=== PATIENT | male | born 1960 | race Two or more races ===

== ENCOUNTER 2020-08-27 13:00 | Outpatient (CLI) | payer OTHER | END 2020-08-27 13:17 | disposition home or self-care (01) | LOC: SONOGRAMA 13:00 → MAMO-SONO 13:15 → SONOGRAMA 13:17 | PROVIDERS: ATTEND Urology | DX: Q61.8 Other cystic kidney diseases (principal); N40.0 Benign prostatic hyperplasia without lower urinary tract symptoms; D30.00 Benign neoplasm of unspecified kidney; Z12.5 Encounter for screening for malignant neoplasm of prostate ==

== ENCOUNTER 2020-12-16 12:22 | Outpatient (CLI) | payer OTHER | END 2020-12-16 12:33 | disposition home or self-care (01) | LOC: RAD 12:22 | PROVIDERS: ATTEND Internal Medicine Cardiovascular Disease | DX: M19.042 Primary osteoarthritis, left hand (principal) ==

== ENCOUNTER 2021-12-05 07:13 | Outpatient (CLI) | payer OTHER | END 2021-12-05 07:24 | disposition home or self-care (01) | LOC: LAB 07:13 | PROVIDERS: ATTEND Internal Medicine Cardiovascular Disease | DX: I11.9 Hypertensive heart disease without heart failure (principal); E11.9 Type 2 diabetes mellitus without complications ==

== ENCOUNTER 2021-12-05 08:09 | Outpatient (CLI) | payer OTHER | END 2021-12-05 13:18 | disposition home or self-care (01) | LOC: LAB 08:09 | PROVIDERS: ATTEND Internal Medicine Cardiovascular Disease | DX: U07.1 COVID-19 (principal); B34.1 Enterovirus infection, unspecified ==

== ENCOUNTER → 2021-12-05 08:10 | Outpatient (CLI) | payer OTHER | END | disposition home or self-care (01) | LOC: NUCLEAR 07:00 | PROVIDERS: ATTEND Internal Medicine Cardiovascular Disease | DX: I10 Essential (primary) hypertension (principal) ==

== ENCOUNTER 2023-12-03 11:36 | Outpatient (CLI) | payer OTHER | END 2023-12-03 11:40 | disposition home or self-care (01) | LOC: SONOGRAMA 11:36 | PROVIDERS: ATTEND Specialist | DX: K40.90 Unilateral inguinal hernia, without obstruction or gangrene, not specified as recurrent (principal) ==

== ENCOUNTER 2024-09-11 09:48 | Outpatient (CLI) | payer OTHER | END 2024-09-11 10:02 | disposition home or self-care (01) | LOC: TOM 09:48 | PROVIDERS: ATTEND Urology | DX: Z12.5 Encounter for screening for malignant neoplasm of prostate (principal); E78.5 Hyperlipidemia, unspecified; N40.0 Benign prostatic hyperplasia without lower urinary tract symptoms; D30.00 Benign neoplasm of unspecified kidney ==